=== PATIENT | male | born 1945 | race Caucasian/White ===

== ENCOUNTER 2024-07-30 05:33 | Day surgery (SDC) | payer MEDICARE ==
[2024-07-28 09:21] LABS: BASOPHILS # (AUTO) 0.04 K/uL (0.00-0.20); BASOPHILS % (AUTO) 0.4 % (0.0-5.0); EOSINOPHILS # (AUTO) 0.21 K/uL (0.00-0.70); EOSINOPHILS % (AUTO) 2.4 % (0.0-8.0); IMMATURE GRANULOCYTE ABSOLUTE 0.04 K/uL (0-1); LYMPHOCYTES # (AUTO) 0.9 K/uL (1.0-4.8); LYMPHOCYTES % (AUTO) 10.4 % (21.0-51.0); MEAN CORPUSCULAR HEMOGLOBIN 31.5 pg (27.0-33.0); MEAN CORPUSCULAR HGB CONC 33.4 g/dL (32.0-36.0); MEAN CORPUSCULAR VOLUME 94.2 fL (79-99); MONOCYTES # (AUTO) 0.9 K/uL (0.1-1.0); MONOCYTES % (AUTO) 10.5 % (3.0-13.0); NEUTROPHILS # (AUTO) 6.8 K/uL (1.8-7.7); NEUTROPHILS % (AUTO) 75.9 % (40.0-77.0); PLATELET COUNT (AUTO) 183 K/uL (130-400); RED BLOOD CELL COUNT(AUTO) 4.67 MIL/uL (4.50-6.20); RED CELL DISTRIBUTION WIDTH 13.8 % (11.0-15.5); WHITE BLOOD COUNT (AUTO) 8.9 K/uL (4.8-10.8)
[2024-07-28 09:29] LABS: POTASSIUM 4.9 mmol/L (3.5-5.1)
[2024-07-28 09:31] LABS: INR 1.25 (0.85-1.15)
[2024-07-28 09:32] LABS: PARTIAL THROMBOPLASTIN TIME 32.1 SEC (26.3-35.5)
[2024-07-28 09:38] VITALS: BP 191/107; PULSE 67; RESP 18; TEMP 98.2
--- NOTE | 2024-07-28 09:38 | EKG ---
[facility] Test Date: 2024-07-28 Test Time: 09:16:52 Pat Name: TED ROBLES Department: [facility] Room: Gender: Ticket Collector Or Usher: [id number] : 1945 Requested By: CEFERINO SOARES Order Number: [id number] Reading MD: Darrin Junior Measurements Intervals [place] Rate: 70 P: 0 [place]: 55 QRS: 229 QRSD: 156 T: 64 QT: 475 QTc: 513 Interpretive Statements Ventricular-paced rhythm Biventricular paced rhythm No previous ECG available for comparison Electronically Signed On 07-29-2024 13:36:07 CDT by Darrin Junior Please click the below link to view image of tracing.
[2024-07-30] VITALS (7 sets, daily range): BP systolic 13–148; BP diastolic 71–96; PULSE 71–91; RESP 13–18; TEMP 96.9–98.3
[~2024-07-30] VITALS: Ht 177.8 cm; Wt 115.8 kg
[~2024-07-30 05:33] MED LIST: ACET-2247 PO; LISI10TA24 PO; METO25TA6 PO; RIVA20TA PO; probiotic PO; rosuvastatin PO; vit c PO
[2024-07-30] MEDS: 0.9%NACL 1000ML 1,000 ML IV SCH (06:30)
[2024-07-30] MEDS ORDERED: LIDOCAINE HCL 1% MDV 50ML VIAL ONE (07:06)
[2024-07-30] MEDS ORDERED: BUPIvacaine/PF 0.25% 30ML VIAL IJ ONE (07:06)
[2024-07-30] MEDS ORDERED: ceFAZolin SODIUM 1 GM VIAL ONE (07:07)
[2024-07-30] MEDS ORDERED: SODIUM BICARB 50MEQ 50ML VIAL 50 ML ONE (07:10)
[2024-07-30] MEDS ORDERED: FENTanyl CITRate PF 50 MCG/1 ML 2ML VIAL ONE (07:22)
[2024-07-30] MEDS ORDERED: MIDAZOLAM HCL 1 MG/ML 2ML VIAL ONE ×2 (07:22→08:00)
[2024-07-30] MEDS ORDERED: BACITRACIN 1 EACH PACKET TP ONE (08:30)
[2024-07-30] MEDS ORDERED: TRAM50TA4 PO (08:46)
[2024-07-30] MEDS ORDERED: acetaMINOPHEN 500 MG TABLET PO PRN (09:00)
[2024-07-30] MEDS ORDERED: acetaMINOPHEN WITH coDEINE 1 TAB TAB PO PRN ×3 (09:00)
--- NOTE | 2024-07-30 09:00 | NUR ---
DRESSING: PRESSURE DRESSING TO LEFT UPPER CHEST DRY/INTACT.
--- NOTE | 2024-07-30 09:15 | NUR ---
DRESSING: PRESSURE DRESSING TO LEFT UPPER CHEST REMAINS DRY/INTACT.
--- NOTE | 2024-07-30 09:30 | NUR ---
DRESSING: PRESSURE DRESSING TO LEFT UPPER CHEST REMAINS DRY/INTACT.
--- NOTE | 2024-07-30 09:45 | NUR ---
DRESSING: DRESSING TO LEFT UPPER CHEST REMAINS DRY/INTACT
--- NOTE | 2024-07-30 10:00 | NUR ---
DRESSING: PRESSURE DRESSING TO LEFT UPPER CHEST REMAINS DRY/INTACT.
--- NOTE | 2024-07-30 10:20 | NUR ---
dressing: pressure dressing to left upper chest removed with no active bleeding present. small bloody drainage to inner dressing. no redness/swelling noted to surrounding area left chest.
--- NOTE | 2024-07-30 10:30 | NUR ---
dressing: dressing to left upper chest with small amount of bloody drainage. no active bleeding present. no redness/swelling noted to surrounding area left chest.
== END 2024-07-30 10:40 | disposition home or self-care (01) ==
LOC: DAH 05:33
PROVIDERS: ATTEND Internal Medicine Cardiovascular Disease
DX: Z45.02 Encounter for adjustment and management of automatic implantable cardiac defibrillator (principal); I11.0 Hypertensive heart disease with heart failure; I50.22 Chronic systolic (congestive) heart failure; I42.8 Other cardiomyopathies; I25.10 Atherosclerotic heart disease of native coronary artery without angina pectoris; E11.9 Type 2 diabetes mellitus without complications; E78.5 Hyperlipidemia, unspecified; I48.21 Permanent atrial fibrillation; E66.9 Obesity, unspecified; Z68.38 Body mass index [BMI] 38.0-38.9, adult; Z82.49 Family history of ischemic heart disease and other diseases of the circulatory system
CPT/HCPCS: 80048; 85025; 85610; 85730; 36415; 93005; 33264; A4223 ×3; C1882; J3010; J0690; J7030; J0665; J3490 ×2; J2250 ×2; A4215; A6251; A4222; A4221; A4663; A4216; A6258; A4606; 99156; 99157